=== PATIENT | female | born 1945 | race Caucasian/White ===

== ENCOUNTER 2016-12-07 11:55 | Day surgery (SDC) | payer MEDICARE, BC ==
[2016-12-07] VITALS (9 sets, daily range): BP systolic 111–149; BP diastolic 69–88; PULSE 58–88; TEMP 97.9
[~2016-12-07] VITALS: Ht 157.5 cm; Wt 79.5 kg
[2016-12-07] MEDS ORDERED: COENZYME Q-10100 M1 PO (13:02)
[2016-12-07] MEDS ORDERED: KRILL OIL 3001 EACH PO (13:03)
[2016-12-07] MEDS ORDERED: PROBIOTIC FORMU1 CAP PO (13:03)
[2016-12-07] MEDS ORDERED: ZOVIRAX400 MG PO (13:04)
[2016-12-07] MEDS ORDERED: GLUCOSAMINE & C1 CA1 PO (13:04)
[2016-12-07 13:05] LABS: MEAN CELL VOLUME 82 fl (80.0-100.0); MEAN CORPUSCULAR HGB CONC 32 g/dl (33.0-37.0); MEAN PLATELET VOLUME 13.5 fl (7.4-10.4); PLATELET COUNT 197 K/mm3 (130-400); RED BLOOD COUNT 4.23 M/mm3 (4.10-5.30); REDCELL DISTRIBUTION WIDTH-CV 14.6 % (11.5-14.5); WHITE BLOOD COUNT 7.9 K/mm3 (4.8-10.8)
[2016-12-07] MEDS ORDERED: PRILOSEC 20MG20 MG PO (13:05)
[2016-12-07] MEDS ORDERED: PRAVACHOL 20MG20 MG PO (13:05)
[2016-12-07] MEDS ORDERED: LOPRESSOR 550 MG/TAB PO (13:06)
[2016-12-07] MEDS ORDERED: ASPIRIN E.C. 8181 MG PO (13:07)
[2016-12-07] MEDS ORDERED: VASOTEC 10M10 MG/TAB PO (13:07)
[2016-12-07 13:08] LABS: HEMATOCRIT 34.5 % (37.0-47.0); HEMOGLOBIN 10.9 g/dl (12.5-16.0); MEAN CORPUSCULAR HEMOGLOBIN 26 pg (27.0-31.0)
[2016-12-07 13:15] LABS: CALCIUM 9.4 mg/dL (8.4-10.2); CREATININE, serum 0.81 mg/dL (0.52-1.25); INR 1.1 (0.8-3.0); POTASSIUM 4.3 mmol/L (3.4-5.0); PROTHROMBIN TIME 12.7 SECONDS (9.7-12.8)
== END 2016-12-07 16:55 | disposition home or self-care (01) ==
LOC: COL.CAR 11:55
PROVIDERS: Internal Medicine Interventional Cardiology
DX: R94.39 Abnormal result of other cardiovascular function study (principal); R07.9 Chest pain, unspecified; I10 Essential (primary) hypertension; R00.2 Palpitations; Z79.899 Other long term (current) drug therapy; Z87.891 Personal history of nicotine dependence
CPT/HCPCS: J2250; J3010; Q9967